=== PATIENT | male | born 1985 | race Hispanic/Latino ===

== ENCOUNTER 2018-10-12 07:13 | Emergency (ER) | payer SELFPAY ==
--- NOTE | 2018-10-12 07:36 | ER ---
Nurse's Notes [facility] Name: Bernard Faust Age: 33 yrs Sex: Male : 1985 Arrival Date: 10/12/2018 Time: 07:15 Bed 6 Private MD: Diagnosis: Epilepsy and recurrent seizures;Type 2 diabetes mellitus Presentation: 10/12 07:09 Presenting complaint: EMS states: witnessed seizure, pt was sitting in a chair, went to stand up and went to the floor. Tonic-clonic seizure described, no head injury. Brother stated that pt has not been taking his seizure medication. BP 119/77 HR-104 RR-20 98% RA BS-148. Transition of care: patient was not received from another setting of care. Onset of symptoms was October 12, 2018. Risk Assessment: Do you want to hurt yourself or someone else? Patient reports no desire to harm self or others. Initial Sepsis Screen: Does the patient meet any 2 criteria? No. Patient's initial sepsis screen is negative. Does the patient have a suspected source of infection? No. Patient's initial sepsis screen is negative. Care prior to arrival: Glucose check: 148. 07:09 Method Of Arrival: EMS: [email or web address] sv 07:09 Acuity: CODY 2 sv Triage Assessment: 07:15 General: Appears in no apparent distress. obese, well developed, Behavior is sv cooperative, drowsy. Pain: Denies pain. Neuro: Level of Consciousness is obeys commands, confused, lethargic, Oriented to person, Moves all extremities. Respiratory: Airway is patent Respiratory effort is even, unlabored, Respiratory pattern is regular, symmetrical. Derm: Skin is pink, warm \T\ dry. Historical: - Allergies: 07:23 No Known Allergies; sv - Home Meds: 07:23 Unable to obtain [Active]; sv - PMHx: 07:23 Seizures; Diabetes - NIDDM; sv - PSHx: 07:23 Unable to obtain; sv - Immunization history:: Adult Immunizations unknown. - Social history:: Smoking status: unknown. - Ebola Screening: : Unable to complete screening because patient does not understand, patient is disoriented, . - Family history:: not pertinent. Screenin:24 Abuse screen: Denies threats or abuse. Denies injuries from another. Nutritional sv screening: No deficits noted. Tuberculosis screening: unable to obtain. Fall Risk No fall in past 12 months (0 pts). Secondary diagnosis (15 points) seizures, IV access (20 points). Ambulatory Aid- None/Bed Rest/Nurse Assist (0 pts). Gait- Normal/Bed Rest/Wheelchair (0 pts) Mental Status- Overestimates/Forgets Limitations (15 pts.). Total Loja Fall Scale indicates High Risk Score (45 or more points). Fall prevention measures have been instituted. Side Rails Up X 2 Placed Close to Nursing Station Frequent Obs/Assessments Occuring As available patient and family educated on Fall Prevention Program and Strategies. Assessment: 07:52 Reassessment: Patient appears in no apparent distress at this time. No changes from sv previously documented assessment. 08:35 Reassessment: Pt up for discharge but just received his CXR. sv 08:50 Reassessment: Patient appears in no apparent distress at this time. Patient and/or sv family updated on plan of care and expected duration. Pain level reassessed. Patient is alert, oriented x 3, equal unlabored respirations, skin warm/dry/pink. 09:20 Reassessment: Patient appears in no apparent distress at this time. No changes from sv previously documented assessment. Pt back from his 2 view CXR. 10:15 Reassessment: Patient appears in no apparent distress at this time. Patient and/or sv family updated on plan of care and expected duration. Pain level reassessed. Patient is alert, oriented x 3, equal unlabored respirations, skin warm/dry/pink. 11:00 Reassessment: Patient appears in no apparent distress at this time. Patient and/or sv family updated on plan of care and expected duration. Pain level reassessed. Patient is alert, oriented x 3, equal unlabored respirations, skin warm/dry/pink. Patient denies pain at this time. Vital Signs: 07:26 BP 138 / 93; Pulse 88; Resp 24; Temp 97.9; Pulse Ox 96% ; Pain 0/10; sv 08:09 BP 130 / 90; Pulse 87; Resp 18; Pulse Ox 97% ; Pain 6/10; em1 08:57 BP 135 / 89; Pulse 76; Resp 22; Pulse Ox 99% on R/A; em1 [place] Coma Score: 07:15 Eye Response: to voice(3). Verbal Response: confused(4). Motor Response: obeys sv commands(6). Total: 13. ED Course: 07:15 Patient arrived in ED. sv 07:15 Patient has correct armband on for positive identification. Placed in gown. Bed in low sv position. Call light in reach. Side rails up X2. Seizure precautions initiated. quality assurance specialist on. Pulse ox on. NIBP on. Door closed. Head of bed elevated. 07:15 Arm band placed on. sv 07:21 Nicki Mederos RN is Primary Nurse. sv 07:23 Triage completed. sv 07:24 EKG done, by ED staff, reviewed by Kameron Becker MD. em1 07:30 Kameron Becker MD is Attending Physician. anibal 07:30 Initial lab(s) drawn, by ED staff, sent to lab. Inserted saline lock: 20 gauge in left sv antecubital area, using aseptic technique. ,using aseptic technique. done by Mike NUNES Blood collected. 07:48 CT Head Brain wo Cont In Process Unspecified. EDMS 07:51 Acetaminophen Sent. sv 07:52 Patient moved back from CT. sv 08:09 Awaiting lab results, Awaiting re-evaluation by ER provider. sv 08:22 Kenn Cardona MD is Referral Physician. anibal 08:35 X-ray(s) taken. sv 08:37 X-ray completed. Portable x-ray completed in exam room. Patient tolerated procedure sw well. 08:39 Chest Single View XRAY In Process Unspecified. EDMS 09:23 Chest Pa And Lat (2 Views) XRAY In Process Unspecified. EDMS 11:04 No provider procedures requiring assistance completed. IV discontinued, intact, sv bleeding controlled, No redness/swelling at site. Pressure dressing applied. Administered Medications: 07:35 Drug: Ativan 1 mg Route: IVP; Site: left antecubital; sv 08:09 Follow up: Response: No adverse reaction sv 07:35 Drug: NS 0.9% 1000 ml Route: IV; Rate: 1 bolus; Site: left antecubital; sv 10:34 Follow up: Response: No adverse reaction; IV Status: Completed infusion; IV Intake: sv 1000ml 07:51 Drug: Keppra 1000 mg Route: IV; Rate: per protocol; Site: left antecubital; sv 08:05 Follow up: Response: No adverse reaction; IV Status: Completed infusion; IV Intake: sv 100ml Point of Care Testing: Blood Glucose: 07:23 Blood Glucose: 121 mg/dL; sv Ranges: Intake: 08:05 IV: 100ml; Total: 100ml. sv 10:34 IV: 1000ml; Total: 1100ml. sv Outcome: 07:36 Discharge ordered by . anibal 08:22 Discharge ordered by . anibal 11:00 Discharged to home ambulatory, with family. sv 11:00 Condition: stable 11:00 Condition: improved 11:00 Discharge instructions given to patient, family, Instructed on discharge instructions, follow up and referral plans. medication usage, Demonstrated understanding of instructions, follow-up care, medications, Prescriptions given X 1. 11:04 Patient left the ED. sg Signatures: Dispatcher [employer] Nicki Sue RN RN sv Gay, Steven, RN RN sg Anderson, Corey, MD MD cha Martinez, Sandie Boyer
--- NOTE | 2018-10-12 07:36 | EDPHYS ---
Physician Documentation [facility] Name: Bernard Faust Age: 33 yrs Sex: Male : 1985 Arrival Date: 10/12/2018 Time: 07:15 Bed 6 Private MD: ED Physician Kameron Becker HPI: 10/12 07:32 This 33 yrs old Male presents to ER via EMS with complaints of Seizure. anibal 07:32 The patient presents after having a single isolated seizure, that lasted 2 minute(s). anibal Character of seizure(s): Loss of consciousness: the patient experienced loss of consciousness, Motor activity: generalized, Incontinence: none, Apnea: the patient did not experience apnea, Circulation: the patient did not experience evidence of pulse disturbance. Seizure onset: the onset is not known. Context: the seizure(s) was witnessed, by co-worker(s). Seizure Hx: it is unknown whether or not the patient has a previous seizure history. Associated injury: Other: tongue, laceration, .25 cm(s). It is unknown whether or not the patient has had similar symptoms in the past. Historical: - Allergies: 07:23 No Known Allergies; sv - Home Meds: 07:23 Unable to obtain [Active]; sv - PMHx: 07:23 Seizures; Diabetes - NIDDM; sv - PSHx: 07:23 Unable to obtain; sv - Immunization history:: Adult Immunizations unknown. - Social history:: Smoking status: unknown. - Ebola Screening: : Unable to complete screening because patient does not understand, patient is disoriented, . - Family history:: not pertinent. ROS: 07:32 Constitutional: Negative for fever, chills, and weight loss, Eyes: Negative for injury, anibal pain, redness, and discharge, ENT: Negative for injury, pain, and discharge, Neck: Negative for injury, pain, and swelling, Cardiovascular: Negative for chest pain, palpitations, and edema, Respiratory: Negative for shortness of breath, cough, wheezing, and pleuritic chest pain, Abdomen/GI: Negative for abdominal pain, nausea, vomiting, diarrhea, and constipation, Back: Negative for injury and pain, : Negative for injury, bleeding, discharge, and swelling, MS/Extremity: Negative for injury and deformity, Skin: Negative for injury, rash, and discoloration, Psych: Negative for depression, anxiety, suicide ideation, homicidal ideation, and hallucinations, Allergy/Immunology: Negative for hives, rash, and allergies, Endocrine: Negative for neck swelling, polydipsia, polyuria, polyphagia, and marked weight changes, Hematologic/Lymphatic: Negative for swollen nodes, abnormal bleeding, and unusual bruising. 07:32 Neuro: Positive for seizure activity. Exam: 07:32 Constitutional: This is a well developed, well nourished patient who is awake, alert, anibal and in no acute distress. Head/Face: Normocephalic, atraumatic. Eyes: Pupils equal round and reactive to light, extra-ocular motions intact. Lids and lashes normal. Conjunctiva and sclera are non-icteric and not injected. Cornea within normal limits. Periorbital areas with no swelling, redness, or edema. ENT: Nares patent. No nasal discharge, no septal abnormalities noted. Tympanic membranes are normal and external auditory canals are clear. Oropharynx with no redness, swelling, or masses, exudates, or evidence of obstruction, uvula midline. Mucous membranes moist. Neck: Trachea midline, no thyromegaly or masses palpated, and no cervical lymphadenopathy. Supple, full range of motion without nuchal rigidity, or vertebral point tenderness. No Meningismus. Chest/axilla: Normal chest wall appearance and motion. Nontender with no deformity. No lesions are appreciated. Cardiovascular: Regular rate and rhythm with a normal S1 and S2. No gallops, murmurs, or rubs. Normal PMI, no JVD. No pulse deficits. Respiratory: Lungs have equal breath sounds bilaterally, clear to auscultation and percussion. No rales, rhonchi or wheezes noted. No increased work of breathing, no retractions or nasal flaring. Abdomen/GI: Soft, non-tender, with normal bowel sounds. No distension or tympany. No guarding or rebound. No evidence of tenderness throughout. Back: No spinal tenderness. No costovertebral tenderness. Full range of motion. Male : Normal genitalia with no discharge or lesions. Skin: Warm, dry with normal turgor. Normal color with no rashes, no lesions, and no evidence of cellulitis. MS/ Extremity: Pulses equal, no cyanosis. Neurovascular intact. Full, normal range of motion. Psych: Awake, alert, with orientation to person, place and time. Behavior, mood, and affect are within normal limits. 07:32 Neuro: Orientation: unable to test, Mentation: slow to respond, confused, Memory: unable to test, Cranial nerves: no acute changes, Motor: moves all fours, Gait: not tested. seizure activity, is not displayed by the patient. Vital Signs: 07:26 BP 138 / 93; Pulse 88; Resp 24; Temp 97.9; Pulse Ox 96% ; Pain 0/10; sv 08:09 BP 130 / 90; Pulse 87; Resp 18; Pulse Ox 97% ; Pain 6/10; em1 08:57 BP 135 / 89; Pulse 76; Resp 22; Pulse Ox 99% on R/A; em1 [place] Coma Score: 07:15 Eye Response: to voice(3). Verbal Response: confused(4). Motor Response: obeys sv commands(6). Total: 13. MDM: 07:30 Patient medically screened. [facility] 07:32 Data reviewed: vital signs, nurses notes, lab test result(s), EKG, radiologic studies, [facility] CT scan. 10/12 07:32 Order name: Acetaminophen [facility] 10/12 07:32 Order name: Basic Metabolic Panel; Complete Time: 08:21 [facility] 10/12 07:32 Order name: CBC with Diff; Complete Time: 08:21 [facility] 10/12 07:32 Order name: ETOH Level; Complete Time: 08:21 [facility] 10/12 07:32 Order name: Hepatic Function; Complete Time: 08:21 [facility] 10/12 07:32 Order name: PT-INR; Complete Time: 08:21 [facility] 10/12 07:32 Order name: Ptt, Activated; Complete Time: 08:21 [facility] 10/12 07:32 Order name: Salicylate; Complete Time: 08:21 [facility] 10/12 07:32 Order name: Urine Drug Screen [facility] 10/12 07:32 Order name: Dilantin; Complete Time: 08:21 [facility] 10/12 07:32 Order name: Valproic Acid (depakote); Complete Time: 08:21 [facility] 10/12 07:32 Order name: Tegretol Level; Complete Time: 08:21 anibal 10/12 07:33 Order name: Acetaminophen Level; Complete Time: 08:21 [facility] 10/12 10:46 Order name: Urine Dipstick--Ancillary (enter results) 10/12 07:32 Order name: EKG; Complete Time: 07:34 [facility] 10/12 07:32 Order name: EKG - Nurse/Tech; Complete Time: 07:51 [facility] 10/12 07:32 Order name: IV Saline Lock; Complete Time: 07:51 [facility] 10/12 07:32 Order name: Labs collected and sent; Complete Time: 07:51 [facility] 10/12 07:32 Order name: Urine Dipstick-Ancillary (obtain specimen); Complete Time: 10:34 [facility] 10/12 07:32 Order name: CT Head Brain wo Cont; Complete Time: 08:21 [facility] 10/12 07:32 Order name: Seizure Precautions; Complete Time: 07:51 [facility] 10/12 08:26 Order name: Chest Single View XRAY; Complete Time: 09:41 [facility] 10/12 08:56 Order name: Chest Pa And Lat (2 Views) XRAY; Complete Time: 09:41 [facility] Administered Medications: 07:35 Drug: Ativan 1 mg Route: IVP; Site: left antecubital; sv 08:09 Follow up: Response: No adverse reaction sv 07:35 Drug: NS 0.9% 1000 ml Route: IV; Rate: 1 bolus; Site: left antecubital; sv 10:34 Follow up: Response: No adverse reaction; IV Status: Completed infusion; IV Intake: sv 1000ml 07:51 Drug: Keppra 1000 mg Route: IV; Rate: per protocol; Site: left antecubital; sv 08:05 Follow up: Response: No adverse reaction; IV Status: Completed infusion; IV Intake: sv 100ml Point of Care Testing: Blood Glucose: 07:23 Blood Glucose: 121 mg/dL; sv Ranges: Critical Glucose Levels:Adult <50 mg/dl or >400 mg/dl <40 mg/dl or >180 mg/dl Disposition: 10/12/18 08:22 Discharged to Home. Impression: Epilepsy and recurrent seizures, Type 2 diabetes mellitus. - Condition is Stable. - Discharge Instructions: Type 2 Diabetes Mellitus, Diagnosis, Adult, Seizure, Adult, Seizure, Adult, [id number], Type 2 Diabetes Mellitus, Diagnosis, Adult, [id number]. - Prescriptions for Keppra 500 mg Oral Tablet - take 1 tablet by ORAL route every 12 hours; 20 tablet. - Work release form, Medication Reconciliation Form, Thank You Letter, Antibiotic Education, Prescription Opioid Use form. - Follow up: Private Physician; When: 2 - 3 days; Reason: Recheck today's complaints, Continuance of care, Re-evaluation by your physician. Follow up: Kenn Cardona; When: 2 - 3 days; Reason: Recheck today's complaints, Continuance of care, Re-evaluation by your physician. - Problem is new. - Symptoms have improved. Signatures: Dispatcher [employer] EDNicki Dumont RN RN sv Gay, Steven, RN RN sg Anderson, Corey, MD MD [facility] Corrections: (The following items were deleted from the chart) 07:36 07:36 10/12/2018 07:36 Discharged to Home. Impression: Epileptic seizures related to [facility] external causes. Condition is Stable. Forms are Medication Reconciliation Form, Thank You Letter, Antibiotic Education, Prescription Opioid Use. Follow up: Private Physician; When: 2 - 3 days; Reason: Recheck today's complaints, Continuance of care, Re-evaluation by your physician. Problem is new. Symptoms have improved. [facility] 07:47 07:36 10/12/2018 07:36 Discharged to Home. Impression: Epileptic seizures related to [facility] external causes; Type 2 diabetes mellitus. Condition is Stable. Discharge Instructions: Type 2 Diabetes Mellitus, Diagnosis, Adult, Seizure, Adult, Seizure, Adult, [id number], Type 2 Diabetes Mellitus, Diagnosis, Adult, [id number], Type 2 Diabetes Mellitus, Self Care, Adult, Type 2 Diabetes Mellitus, Self Care, Adult, [id number]. Prescriptions for Keppra 500 mg Oral Tablet - take 1 tablet by ORAL route every 12 hours; 20 tablet. and Forms are Medication Reconciliation Form, Thank You Letter, Antibiotic Education, Prescription Opioid Use. Follow up: Private Physician; When: 2 - 3 days; Reason: Recheck today's complaints, Continuance of care, Re-evaluation by your physician. Problem is new. Symptoms have improved. [facility] 11:04 08:22 10/12/2018 08:22 Discharged to Home. Impression: Epilepsy and recurrent seizures; sg Type 2 diabetes mellitus. Condition is Stable. Discharge Instructions: Type 2 Diabetes Mellitus, Diagnosis, Adult, Seizure, Adult, Seizure, Adult, [id number], Type 2 Diabetes Mellitus, Diagnosis, Adult, [id number]. Prescriptions for Keppra 500 mg Oral Tablet - take 1 tablet by ORAL route every 12 hours; 20 tablet, Keppra 500 mg Oral Tablet - take 1 tablet by ORAL route every 12 hours; 20 tablet. and Forms are Medication Reconciliation Form, Thank You Letter, Antibiotic Education, Prescription Opioid Use. Follow up: Private Physician; When: 2 - 3 days; Reason: Recheck today's complaints, Continuance of care, Re-evaluation by your physician. Follow up: Kenn Cardona; When: 2 - 3 days; Reason: Recheck today's complaints, Continuance of care, Re-evaluation by your physician. Problem is new. Symptoms have improved. anibal
[2018-10-12] MEDS ORDERED: levETIRAcetam 1,000 MG in NA CHLORIDE 0.9% 100 ML IV ONE (07:45)
[2018-10-12] MEDS ORDERED: LORazepam 2 MG/ML VIAL ONE (07:47)
[2018-10-12] MEDS ORDERED: NA CHLORIDE 0.9% 1,000 ML ONE (07:47)
[2018-10-12 07:54] LABS: Absolute Monocytes 0.6 K/uL (0.1-1.3); Absolute Neutrophil 7.2 K/uL (1.8-8.0); Basophils % 0.7 % (0-1.3); Eosinophils % 0.2 % (0-4.4); Hematocrit 44.3 % (39.6-49.0); Lymphocytes % 11.1 % (15.3-44.8); MPV 9.8 fL (7.6-11.3); Monocytes % 6.7 % (3.3-12.3)
[2018-10-12 07:55] LABS: Protime INR 1.04
--- NOTE | 2018-10-12 08:03 | RAD REPORT ---
EXAM DESCRIPTION: CT - Head Brain Wo Cont - 10/12/2018 7:48 am CLINICAL HISTORY: Seizure, lethargy, transient alteration of awareness COMPARISON: None. TECHNIQUE: Axial 5 mm thick images of the head were obtained without IV contrast. All CT scans are performed using dose optimization technique as appropriate and may include automated exposure control or mA/KV adjustment according to patient size. FINDINGS: No intracranial hemorrhage, mass, edema or shift of mid-line structures. No acute infarcti on changes seen. No abnormal extra-axial fluid collections. Ventricles are normal. Mastoid air cells and visualized portions of the paranasal sinuses are clear. No acute bony findings. IMPRESSION: Negative non-contrast CT head examination.
[2018-10-12 08:13] LABS: ALT/SGPT 51 U/L (12-78); AST/SGOT 27 U/L (15-37); Albumin 3.6 g/dL (3.4-5.0); Alkaline Phosphatase 81 U/L (45-117); BUN Blood Urea Nitrogen 14 mg/dL (7-18); Bicarbonate 24 mmol/L (21-32); Bilirubin Direct 0.1 mg/dL (0-0.2); Bilirubin Total 0.6 mg/dL (0.2-1.0); Glucose Level 123 mg/dL (74-106); Potassium 3.6 mmol/L (3.5-5.1); Protein, Total 7.7 g/dL (6.4-8.2); Sodium Level 140 mmol/L (136-145)
[2018-10-12 08:16] LABS: Phenytoin (Dilantin) Level < 0.4 ug/mL (10.0-20.0)
--- NOTE | 2018-10-12 08:55 | RAD REPORT ---
EXAM DESCRIPTION: RAD - Chest Single View - 10/12/2018 8:40 am CLINICAL HISTORY: Seizure, shortness of breath COMPARISON: None. TECHNIQUE: AP portable chest image was obtained 0837 hours . FINDINGS: Lung volumes are low. Detail is limited by portable technique, shallow inspiration and lar ge body habitus. No peripheral consolidation identifiable. Mild failure or volume overload could easi ly be masked. Cardiac silhouette is enlarged at least in part due to the above detailed limitations o f this examination. Trachea is midline. No measurable pleural effusion and no pneumothorax. No acute bony abnormality seen. No acute aortic findings suspected. IMPRESSION: Significantly limited portable chest examination. No peripheral consolidations seen. Mild failure or volume overload are easily masked.
--- NOTE | 2018-10-12 09:33 | RAD REPORT ---
EXAM DESCRIPTION: RAD - Chest Pa And Lat (2 Views) - 10/12/2018 9:23 am CLINICAL HISTORY: Chest pain COMPARISON: October 12 TECHNIQUE: PA and lateral views of the chest were obtained. FINDINGS: The lungs are much better aerated than on the earlier examination. Body habitus artifacts have been substantially reduced. No focal mass or consolidation in the lung parenchyma. No failure or volume overload. Heart size is normal and central vasculature is within normal limits. No pleural effusion or pneumothorax seen. No acute bony finding noted. No aortic abnormality. IMPRESSION: Substantial improvement in the technical factors limiting the earlier portable examinati on. Current examination shows no failure, infiltrate, mass or other acute chest finding.
[2018-10-12 10:59] LABS: Barbiturates NEGATIVE (NEGATIVE); Benzodiazepines NEGATIVE (NEGATIVE); Cocaine NEGATIVE (NEGATIVE); METHAMPHETAM NEGATIVE (NEGATIVE); Methadone NEGATIVE (NEGATIVE); Opiates NEGATIVE (NEGATIVE); Phencyclidine NEGATIVE (NEGATIVE); THC Cannibis NEGATIVE (NEGATIVE)
[2018-10-12 14:36] LABS: Urine Blood NEGATIVE (NEG); Urine Glucose NEGATIVE (NEG); Urine Protein 1+ (NEG)
--- NOTE | 2018-10-12 18:26 | EKG ---
Test Date: 2018-10-12 Test Time: 07:21:11 Cold Press Operator: AMANDA MEASUREMENT RESULTS: Intervals: Rate: 93 WA: 180 QRSD: 90 QT: 342 QTc: 425 [place]: P: 59 WA: 180 QRS: 82 T: 53 INTERPRETIVE STATEMENTS: Normal sinus rhythm Normal ECG No previous ECG available for comparison Electronically Signed On 10-12-18 18:23:43 CDT by Armando Garcia
== END 2018-10-12 11:04 | disposition home or self-care (01) ==
LOC: ER 07:13
DX: G40.802 Other epilepsy, not intractable, without status epilepticus (principal); E11.9 Type 2 diabetes mellitus without complications
CPT/HCPCS: 36415; 70450; 71045; 71046; 80048; 80076; 80156; 80164; 80185; 80307; 80320; 80329; 81003; 82962; 85025; 85610; 85730; 93005; 96361; 96374; 96375; 99285; J1953; J7030